=== PATIENT | male | born 1945 | race Caucasian/White ===

== ENCOUNTER 2020-11-24 09:22 | Outpatient (CLI) | payer OTHER, SELFPAY ==
--- NOTE | 2020-11-24 | ECG_ITS ---
Measurements Intervals [place] Rate: 85 P: VT: 0 QRS: 4 QRSD: 89 T: 71 QT: 361 QTc: 430 Interpretive Statements ATRIAL FIBRILLATION LOW QRS VOLTAGE- DIFFUSE LEADS BORDERLINE R WAVE PROGRESSION, ANTERIOR LEADS BORDERLINE ST-T WAVE ABNORMALITY- INF/HIGH LAT LEADS BASELINE ARTIFACT- III, AVF, V1-V6 ABNORMAL ECG Electronically Signed On 11-24-2020 10:13:43 CASE WORK AIDE by Heath Sandoval D.O.
== END 2020-11-24 09:23 | disposition home or self-care (01) ==
PROVIDERS: PCP Emergency Medicine; Visit Provider Internal Medicine Cardiovascular Disease
DX: I48.21 Permanent atrial fibrillation (principal); Z98.61 Coronary angioplasty status; E78.2 Mixed hyperlipidemia; G47.33 Obstructive sleep apnea (adult) (pediatric); I51.9 Heart disease, unspecified; I48.19 Other persistent atrial fibrillation; R94.31 Abnormal electrocardiogram [ECG] [EKG]
CPT/HCPCS: 93005

== ENCOUNTER 2023-10-20 06:35 | Outpatient (CLI) | payer MEDICARE, OTHER, SELFPAY ==
--- NOTE | ~2023-10-20 | CT_ITS ---
EXAMINATION: CT abdomen pelvis wo/w con DATE: 10/20/2023 07:29 INDICATION: Gross hematuria TECHNIQUE: Computed tomography (CT) of the abdomen and pelvis was performed without and subsequently with 130 CC Omnipaque 350 intravenous contrast. Automated exposure control and iterative reconstructi on technique were employed. Exam dose: 2632.98 mGy-cm total exam DLP. COMPARISON: 10/20/2023 KUB FINDINGS: Calcified pulmonary granulomas. There is mild discoid atelectasis or scarring at the lung b ases. No basilar consolidation. Coronary artery calcification. No pericardial or pleural effusion. Several probable hepatic cysts, measuring up to approximately 1.4 cm maximal dimension. The gallbladd er, bile ducts, pancreatic duct, pancreas and spleen as well as adrenal glands are unremarkable. There are at least several bilateral renal wedge shaped areas of cortical diminished contrast enhance ment, suggesting bilateral renal infarcts or acute pyelonephritis. There are 3 nonobstructing right renal calculi, the smallest punctate, the largest approximately 4.4 mm. 2.8 mm lower pole nonobstructing left renal calculus. There are 2 distal right ureteral calculi, measuring approximately 5 x 6.5 mm and 5.3 x 7.2 mm. There is very prominent prostatomegaly and multiple prostate calcifications, with diffuse thickening of the urinary bladder wall consistent with bladder outlet obstruction. Small sliding hiatal hernia. Normal appendix. There is a lengthy redundant sigmoid colon. There are multiple diverticula of the sigmoid and to a le sser extent descending and transverse colon; no CT evidence of diverticulitis. No bowel obstruction, bowel wall thickening, pneumatosis or intraperitoneal free air is detected. Small fat-containing left inguinal hernia. Small fat-containing umbilical hernia. Moderate degenerative changes of the thoracic and lumbar spine. There is grade 1 anterolisthesis at L 5-S1 due to degenerative change at the apophyseal joints. Bilateral hip osteoarthritis. No suspicious osteolytic or osteoblastic lesions are noted. IMPRESSION: Multiple bilateral wedge-shaped areas of diminished contrast enhancement of renal cortex, suggesting bilateral renal infarcts or acute pyelonephritis Bilateral nephrolithiasis 2 large distal right ureteral calculi without hydroureteronephrosis Several hepatic cysts Small sliding hiatal hernia Normal appendix Diverticulosis of the colon Prominent prostatomegaly, with bladder wall thickening consistent with bladder outlet obstruction Reviewed, dictated and finalized at Location A. Reviewed, dictated and finalized at location B. L CONCIERGE IMPRESSION: Multiple bilateral wedge-shaped areas of diminished contrast enhanc ement of renal cortex, suggesting bilateral renal infarcts or acute pyelonephri tis Bilateral nephrolithiasis 2 large distal right ureteral calculi without hydroureteronephrosis Several hepatic cysts Small sliding hiatal hernia Normal appendix Diverticulosis of the colon Prominent prostatomegaly, with bladder wall thickening consistent with bladder outlet obstruction
--- NOTE | ~2023-10-20 | XR_ITS ---
EXAMINATION: XR abdomen/kub 1V DATE: 10/20/2023 07:09 INDICATION: Gross hematuria. TECHNIQUE: A supine view of the abdomen on 2 radiographs was obtained. COMPARISON: CT abdomen and pelvis 10/20/23 FINDINGS: There are no dilated loops of bowel. The kidneys are obscured by bowel. There are two 6 mm stones in distal right ureter. IMPRESSION: 1. Distal right ureteral stones. Reviewed, dictated and finalized at location E. LOCKER
[2023-10-20 07:15] LABS: Estimated Glomerular Filt Rate > 60
== END 2023-10-20 06:36 | disposition home or self-care (01) ==
PROVIDERS: Visit Provider Urology
DX: R31.0 Gross hematuria (principal); N20.1 Calculus of ureter; N20.0 Calculus of kidney; K44.9 Diaphragmatic hernia without obstruction or gangrene; K57.30 Diverticulosis of large intestine without perforation or abscess without bleeding
CPT/HCPCS: 74018; 74178; Q9967

== ENCOUNTER 2023-11-02 08:14 | Outpatient (CLI) | payer MEDICARE, SELFPAY ==
--- NOTE | 2023-11-02 08:23 | ECG_ITS ---
Measurements Intervals [place] Rate: 59 P: CA: 0 QRS: -13 QRSD: 98 T: 72 QT: 430 QTc: 428 Interpretive Statements ATRIAL FIBRILLATION WITH SLOW VENTRICULAR RESPONSE LOW QRS VOLTAGE [QRS DEFLECTION < 0.5/1.0 mV IN LIMB/CHEST LEADS] COMPARED TO ECG 11/24/2020 09:47:36 NO SIGNIFICANT CHANGES Electronically Signed On 11-02-2023 13:58:38 CITY DRIVER by Amanda Montana M.D.
[2023-11-02 08:59] LABS: Anion Gap 6 mmol/L (8-16); Blood Urea Nitrogen 10 mg/dL (9-20); Carbon Dioxide 30 mmol/L (22-30); Chloride 105 mmol/L (98-107); Estimated Glomerular Filt Rate > 60; Glucose 131 mg/dL (65-110); Potassium 3.7 mmol/L (3.4-5.0); Sodium 141 mmol/L (137-145)
== END 2023-11-02 08:15 | disposition home or self-care (01) ==
LOC: ANHSURGERY 08:19
PROVIDERS: Anesthesiology; Visit Provider Urology
DX: N20.1 Calculus of ureter (principal); I10 Essential (primary) hypertension; E11.9 Type 2 diabetes mellitus without complications; Z01.818 Encounter for other preprocedural examination
CPT/HCPCS: 36415; 80048; 87086; 93005

== ENCOUNTER 2023-11-07 01:11 | Day surgery (SDC) | payer MEDICARE, OTHER, SELFPAY ==
--- NOTE | 2023-10-30 13:13 | PC.NURSE ---
Report to the Outpatient Waiting Room, entrance under the green pavilion located off [facility], at time _1100 on date __11/07/23 . Planned Procedure Time: __1:00 PM . Time changes happen often and if your time is changed the preop area will call you the afternoon before. - You and your visitor will be asked to self-screen and do not enter if you have any COVID symptoms. - A mask is optional within the hospital at this time. Patients may have clear liquids (water, carbonated beverages, clear teas, apple juice) until 3 hours prior to surgery (10 AM)with a maximum of 20 ounces. - No food from midnight until time of surgery - Infants may have breast milk until 4 hours before surgery, infant formula 6 hours prior to surgery. - Children will be allowed to drink immediately following surgery. If applicable, please bring a bottle or sippy cup to assist with drinking. Juice, water, soda, and popsicles are readily available. For infants on formula, please bring formula the day of surgery. Pacifiers are allowed. Take the following medications with a SIP of water the morning of surgery: __NONE DO NOT STOP ANY OF YOUR OTHER PRESCRIPTION MEDICATIONS PRIOR TO SURGERY ?EXCEPT THE FOLLOWING Medications to discontinue per physician __WIFE STATES LAST DOSE OF ASPIRIN TODAY 10/30/23 AND HOLD ELIQUIS 2 DAYS PRE OP PER DR CANTOR.LAST DOSE 11/04/23 Please no make-up, nail estonian, hairspray, perfume, deodorant, or body powder the day of surgery. No jewelry (including any body piercings) or valuables the day of surgery, leave them at home. Please take a shower or bath the night before, or the morning of, surgery with an antibacterial soap. Wear comfortable, loose fitting clothing. Children are encouraged to wear pajamas. - Jewelry must be removed prior to entering the operating room. Rings and piercings that are not removed may be cut off. - The hospital will not accept responsibility for valuables. - Please leave all valuables, including medications, at home the day of surgery. If you are going home after surgery, a licensed team driver must drive you home. - NO public transportation without another adult if you receive anesthesia. - We recommend that an adult stay with you for 24 hours following discharge. - We also recommend that you do not drive, make important decision, drink alcoholic beverages, or take any drugs that were not prescribed by your health care provider for at least 24 hours after your discharge time. For Pediatric surgeries, we recommend two adults accompany the child home. Follow any additional instructions given to you from your surgeon. If you or anyone in your household have experienced Covid symptoms in the past week, please notify your surgeon or the nurse liaison at the phone number below for possible testing. Telephone instructions given to __PT'S CHRISTOPHER and asked if any additional questions and then verbalized understanding. Patient advised to call surgeon office or pre surgery nurse liaison [phone] if any additional questions.
[2023-10-30 13:24] VITALS: BMI 36.9
[2023-11-07] VITALS (16 sets, daily range): BP systolic 112–134; BP diastolic 60–91; PULSE 60–92; RESP 12–20; TEMP 36.2–36.7; O2SAT 95–100; BMI 35.7
--- NOTE | ~2023-11-07 | XR_ITS ---
EXAMINATION: XR retrograde pyelo w/stent RT DATE: 11/07/2023 14:20 INDICATION: Right ureteral stone with gross hematuria TECHNIQUE: 3 fluoroscopic images of the abdomen and pelvis were obtained during procedure performed shelley Fung. Radiologist was not present for the imaging or procedure. The amount of fluoroscopy t kelly used during this procedure was 1.0 minutes. COMPARISON: CT dated 10/20/2023 FINDINGS: Images demonstrate a catheter advanced into the right renal pelvis with contrast injection demonstrat ing minimal right hydronephrosis. Final images demonstrate a right internal ureteral stent with loops formed in the region of the right renal pelvis and in the bladder. The previously seen distal right ureteral stone is no longer visualized and has likely been extracted. IMPRESSION: 1. Right internal ureteral stent in expected position. 2. Previously seen distal right ureteral stone no longer visualized and has likely been extracted. Co rrelate with procedure note. Reviewed, dictated and finalized at location A. PARKER IMPRESSION: 1. Right internal ureteral stent in expected position. 2. Previously seen distal right ureteral stone no longer visualized and has lik hayden been extracted. Correlate with procedure note.
--- NOTE | 2023-11-07 07:18 | WPDHPUPDATE1 ---
History and Physical Update Update Date/Time: 11/07/23 07:18 History and Physical has been reviewed, including an updated exam of the patient. There are NO changes in the patient's condition. Risks, benefits, and alternatives have been discussed and questions answered. Patient agrees to proceed with procedure.
[2023-11-07 11:00] LABS: Glucose Point of Care 102 mg/dl (65-105)
[2023-11-07] MEDS: LACTATED RINGERS 1,000 ML 30 ML IV CONT ×2 (11:00→15:00)
--- NOTE | 2023-11-07 11:38 | WPDANESEPPF ---
Anes - Initial Pre Proc Eval Procedure: Operation Date: 11/07/23 12:30 Proposed Procedures p Cystoscopy, Right Retrograde Pyelogram, Right Ureteroscopy, Right Stone Extraction, Holmium Laser with Right Stent Placement - Rick Fung MD Date/Time: 11/07/23 11:38 Surgeon: Rick Fung MD Pre Op Diagnosis: right ureteral stone Patient Data Age: 78 Gender: M Height: 1.73 m Weight: 106.6 kg Last Vital Signs Temp 36.2 C L 11/07/23 11:00 Pulse 77 11/07/23 11:00 Resp 14 11/07/23 11:00 BP 133/91 H 11/07/23 11:00 Pulse Ox 99 11/07/23 11:00 O2 Del Method Room Air 11/07/23 11:00 Allergies Allergy/AdvReac Type Severity Reaction Status Date / Time No Known Allergies Allergy Verified 11/07/23 11:04 Home Medications Medication Instructions Recorded Confirmed Type apixaban 5 mg tablet (Eliquis) 5 mg PO BID 09/10/19 11/07/23 History aspirin 81 mg tablet 81 mg PO DAILY 09/10/19 11/07/23 History atorvastatin 80 mg tablet 80 mg PO DAILY 09/10/19 10/30/23 History losartan 25 mg tablet 50 mg PO DAILY 09/10/19 10/30/23 History alogliptin 6.25 mg tablet 6.25 mg PO DAILY 10/30/23 10/30/23 History Laboratory Tests 11/07/23 10:57 POC Capillary Glucose 102 mg/dl (65-105) Patient hx anesthesia problems: none Family hx anesthesia problems: none Results Review: All pre-operative results and documents have been reviewed as part of the pre-operative evaluation. [facility] Past Medical History Medical History Abnormal PSA Afib Bilateral knee pain CAD (coronary artery disease) Degenerative joint disease of knee Hearing loss HLD (hyperlipidemia) Family History Family History Father Family history of malignant neoplasm, Onset Age: 78 Mother Family history of lung disease, Onset Age: 80 Social History Social History Smoking status: Never smoker Alcohol intake: never Living arrangements: with family Spiritual care concerns: No Anes - Eval Final PreProcedure Day of Procedure 11/07/23 11:38 Patient weight: obese Heart: irregular rhythm Lungs: clear to auscultation Airway: Mallampati scale class II and special considerations poor dentition (loose teeth) Last oral intake: >/= 8 hours ASA classification: III Emergent: no Anesthetic plan: proceed Anesthesia type and monitoring: general LMA and standard monitoring Results Review: All pre-operative results and documents have been reviewed as part of the pre-operative evaluation. Informed Consent: The patient's anesthetic plan and its attendant risks including tooth loss and benefits were discussed with the patient/family/POA. Questions were solicited and answers provided to the satisfaction of the patient/family/POA.
[2023-11-07] MEDS: ceFAZolin 2 GM/D5W 50 ML 2 GM/50 ML BAG IVPB (12:40)
[2023-11-07] MEDS: LIDOCAINE HCL 2% GEL UROJET 10 ML PKG MUCOUS MEM (12:57)
--- NOTE | 2023-11-07 14:17 | W.PM.PROC2 ---
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 Once anesthesia was obtained was placed in dorsal lithotomy position and prepped and draped usual sterile fashion. Twenty-two Honduran scope would not pass into the meatus. We dilated the urethra up to 24 Honduran. Twenty-two Honduran scope was then passed. Patient has somewhat of elevated bladder neck with prostate protruding there. Is very vascular nature. It was very difficult to inspect the bladder as it was difficult to manipulate the scope. I was finally able to visualize a right ureteral orifice and cannulated with a Sensor wire. I dilated with an 8/10 dilator. A rigid ureteral scope could not be torqued enough to enter into the orifice. A ureteral access sheath was then placed. A flexible ureteral scope was inserted distal ureter. He has 2 large stones present. Using a holmium laser we were able to finally laser the stone to the point we could extract the stone fragments. Pyelogram was performed to confirm placement of the stent. 4.8 [place] contour stent was then placed with the proximal end coiled in the renal pelvis and the distal in the bladder. He did have some bleeding from the prostatic fossa. Eighteen [place]uran 3 was then placed with 10 cc in the balloon. Patient is taken recovery stable condition with CBI. His urine clears he will be discharged home with Garcia catheter trauma otherwise be admitted for CBI. Will plan on removing the catheter in 2-3 days time and the stent in 1 week. This completes dictation on this patient. Please send a copy this op note to my office. Estimated Blood Loss 10 Drains Yes Packing No Pathology Yes Complications No immediate complications Condition Stable Disposition PACU
[2023-11-07 14:49] LABS: Glucose Point of Care 113 mg/dl (65-105)
--- NOTE | 2023-11-07 17:47 | ADMGEN ---
This patient, Christopher Novak, was admitted to Medical Room 347-. Patient/family oriented to hospital policies and general routines including ID bracelet, bed and alarms, visiting hours, pain management, procedures, bathroom and other care routines, personal items, smoking policy, room service/diet, and visiting hours. Information on how to activate the Rapid Response Team has been discussed. Patient/Family are encouraged to report perceived risks to care and to ask questions if they do not understand what they are told or what they should do.
[2023-11-07] MEDS: DOCUSATE SODIUM 100 MG CAPSULE PO (18:03)
[2023-11-07] MEDS: ONDANSETRON INJ 4 MG/2 ML VIAL IV PUSH (18:04)
[2023-11-07] MEDS: DEXTROSE 5%/LACTATED RINGERS 1,000 ML 125 ML IV CONT (18:04)
[2023-11-07] MEDS: HYDROcodone/acetaminophen (*CRX) 5-325 MG TABLET 1 TAB PO (18:04)
[2023-11-07] MEDS: ceFAZolin 1 GM/NS 50 ML 1 GM/50 ML BAG IVPB (21:03)
[2023-11-08 02:30] VITALS: BP 122/68; PULSE 74; RESP 20; TEMP 36.3; O2SAT 98
[2023-11-08] MEDS: ceFAZolin 1 GM/NS 50 ML 1 GM/50 ML BAG IVPB (04:38)
[2023-11-08 06:12] LABS: Hematocrit 39.2 % (42.0-52.0); Hemoglobin 13.5 g/dL (14.0-18.0)
[2023-11-08 06:30] VITALS: BP 110/55; PULSE 84; RESP 20; TEMP 36.6; O2SAT 98
--- NOTE | 2023-11-08 07:36 | WPDANESPN ---
Anes - Prog Note Post-Op Date/Time: 11/08/23 07:36 Cardiovascular status: normal Respiratory status: normal Airway patency: baseline Mental status: baseline Post-Op hydration status: normal Vital Signs: Last Vital Signs Temp 36.3 C L 11/08/23 02:30 Pulse 74 11/08/23 02:30 Resp 20 11/08/23 02:30 BP 122/68 11/08/23 02:30 Pulse Ox 98 11/08/23 02:30 O2 Del Method Room Air 11/07/23 20:00 O2 Flow Rate 8 11/07/23 14:50 Pain Score (VAS): 0 I/O: Intake & Output 11/07/23 11/07/23 11/08/23 15:59 23:59 07:59 Intake Total 3250 3150 Output Total 5150 1850 4700 Balance -1900 1300 -4700 Laboratory Tests 11/08/23 06:01 11/07/23 11/07/23 11/08/23 10:57 14:46 06:01 Hgb 13.5 L Hct 39.2 L POC Capillary Glucose 102 113 H Post-procedural complaints: none Patient Feedback: Patient satisfied with anesthetic care.
--- NOTE | 2023-11-08 08:19 | WPDUROPN2 ---
Progress Note: A&P Assessment and Plan (1) Right ureteral calculus: Code(s): N20.1 - Calculus of ureter Status: Acute Assessment and Plan: Doing well overall. Will wean the CBI. If remains clear to be discharged home with Garcia catheter and have it removed on Monday. Plan on stent removal in 1-2 weeks time. Subjective Subjective Date/Time Seen: 11/08/23 08:19 Post Op day: 1 (Right ureteroscopy with holmium laser and stone extraction with stent placement.) Principal diagnosis: Right ureteral calculi, hematuria Interval history: Was doing well overall. He was a difficult ureteroscopy with a significantly enlarged prostate which was vascular in nature. Difficult to find the orifices due to the prostate size. Nonetheless he is doing well today. His urine is still slightly pink and will continue to run the CBI this morning. Will wean it off by lunch time. It stays clear he will be discharged home with a Garcia catheter and have it removed on Monday. Stent removal in 1-2 weeks time. Will also need to address his abnormal MRI of the prostate as he will need a prostate biopsy. Exam Const: General: cooperative and comfortable Resp: Effort & Inspection: normal respiratory effort Cardio: Rate: regular rate Rhythm: regular rhythm Urinary Catheter: Urinary Catheter: patent and draining and urine pink Objective Data Vital Signs Vital Signs: Vital Signs - 24 hr 11/07/23 11:00 11/07/23 14:22 11/07/23 14:35 Temperature 36.2 C L 36.2 C L Pulse Rate 77 89 89 Respiratory Rate 14 16 17 Blood Pressure 133/91 H 132/79 134/90 Pulse Oximetry 99 100 100 Oxygen Delivery Room Air Simple Face Mask Simple Face Mask Oxygen Flow Rate 8 8 11/07/23 14:50 11/07/23 15:05 11/07/23 15:20 Temperature Pulse Rate 92 85 78 Respiratory Rate 18 18 17 Blood Pressure 118/72 131/87 125/84 Pulse Oximetry 100 100 96 Oxygen Delivery Simple Face Mask Room Air Room Air Oxygen Flow Rate 8 11/07/23 15:35 11/07/23 15:50 11/07/23 16:05 Temperature Pulse Rate 82 73 76 Respiratory Rate 16 14 12 Blood Pressure 112/83 129/70 127/84 Pulse Oximetry 97 97 95 Oxygen Delivery Room Air Room Air Room Air Oxygen Flow Rate 11/07/23 16:20 11/07/23 16:35 11/07/23 17:05 Temperature 36.6 C 36.6 C Pulse Rate 78 77 60 Respiratory Rate 12 12 18 Blood Pressure 119/84 124/68 134/86 Pulse Oximetry 99 98 98 Oxygen Delivery Room Air Room Air Oxygen Flow Rate 11/07/23 17:18 11/07/23 17:53 11/07/23 18:22 Temperature 36.6 C 36.7 C Pulse Rate 74 76 Respiratory Rate 18 18 Blood Pressure 134/87 122/71 Pulse Oximetry 97 96 Oxygen Delivery Room Air Oxygen Flow Rate 11/07/23 18:45 11/07/23 20:00 11/07/23 22:30 Temperature 36.3 C L 36.6 C Pulse Rate 91 88 Respiratory Rate 18 20 Blood Pressure 123/60 Pulse Oximetry 98 98 Oxygen Delivery Room Air Oxygen Flow Rate 11/08/23 02:30 11/08/23 06:30 Temperature 36.3 C L 36.6 C Pulse Rate 74 84 Respiratory Rate 20 20 Blood Pressure 122/68 110/55 L Pulse Oximetry 98 98 Oxygen Delivery Oxygen Flow Rate Intake/Output Intake/Output: Intake & Output 11/05/23 11/06/23 11/07/23 11/08/23 23:59 23:59 23:59 23:59 Intake Total 6400 Output Total 7000 4700 Balance -600 -4700 Meds/Results Medications: Active Medications Generic Name Dose Route Start Last Admin Trade Name Freq PRN Reason Stop Dose Admin Hydrocodone Bitart/Acetaminophen 1 tab 11/07/23 16:45 11/07/23 18:04 Hydrocodone/Acetaminophen (*Crx) 5-325 Mg Tablet PO 1 tab Q4H PRN Administration Pain Rated 1-6 Cephalexin HCl 500 mg 11/08/23 09:00 Cephalexin 500 Mg Capsule PO QID JAMES Docusate Sodium 100 mg 11/07/23 17:00 11/07/23 18:03 Docusate Sodium 100 Mg Capsule PO 100 mg BID JAMES Administration Hyoscyamine 0.125 mg 11/07/23 16:45 Hyoscyamine Sulfate 0.125 Mg Tablet SUBLINGUAL Q6H PRN Bladder Spasm Losartan
[2023-11-08 08:40] LABS: Glucose Point of Care 112 mg/dl (65-105)
[2023-11-08 09:12] VITALS: BP 104/73; PULSE 72; RESP 16; TEMP 36.9; O2SAT 97
[2023-11-08] MEDS: LOSARTAN POTASSIUM 25 MG TABLET 50 MG PO (09:29)
[2023-11-08] MEDS: CEPHALEXIN 500 MG CAPSULE PO ×2 (09:30→12:00)
[2023-11-08 11:37] LABS: Glucose Point of Care 157 mg/dl (65-105)
--- NOTE | 2023-11-08 13:48 | PM.DS ---
DS: Admitting Diagnosis Discharge Date 11/08/2023 Admitting Diagnosis Right ureteral stone DS: Discharge Diagnosis Discharge Diagnosis (1) Right ureteral calculus: Code(s): N20.1 - Calculus of ureter Status: Acute Assessment and Plan: Underwent urethral dilation, cystoscopy, right retrograde pyelogram, right ureteroscopy with holmium laser, stone extraction, and right ureteral stent placement on 11/07/23. He tolerated the procedure well. Had postoperative bleeding from prostatic fossa therefore 3 way catheter was placed and he was started on CBI. CBI was able to be weaned and his urine remained clear off CBI and without clots. DS: Summary Hospital Course Hospital Course: Date of admission: 11/07/23 Date of discharge: 11/08/23 Christopher was noted to have a right ureteral stone and presented to this facility on 11/07/23 for surgery as above. He tolerated the procedure very well. Due to bleeding from his prostatic fossa, a 3 way catheter was placed and he was started on CBI. Decision was made to have him be monitored overnight and CBI was weaned. He tolerated this well and CBI was discontinued on postoperative day 1. His urine remained clear and free of clots. Aspirin and Eliquis were placed on hold and will plan to resume after follow up in 2-3 days if urine is remaining clear. He complained of mild right ureteral stent discomfort but this improved. Overall his pain was well controlled and he was feeling improved. He will be discharged with his Higgins catheter in place and will follow-up in the office with me on 11/10/2023 for catheter removal. He will then follow-up in the office with Dr. Fung on 11/22/2023 for stent removal. Status at Discharge Functional status at discharge: independent ambulation Time Spent with Patient Time attestation: Total time spent providing and/or coordinating discharge services: 30 minutes Exam Narrative: General: Awake, alert, comfortable, no acute distress HEENT: Normocephalic, atraumatic, sclerae anicteric Respiratory: Normal respiratory effort, no accessory muscle use Abdomen: Nondistended, soft, nontender : Higgins catheter draining clear-light pink urine, free of clots Skin: Normal coloration, warm and dry Neurologic: No focal neuro deficits noted Psychiatric: Appropriate mood and affect, judgment and insight intact DS: Data Data Completed and Pending Pending studies at discharge: Pending at discharge 11/07/23 12:49 Surgical [PTH] Routine Labs on day of discharge: Labs from last 24 hours 11/08/23 11/08/23 11/08/23 11:32 08:35 06:01 Hgb 13.5 L Hct 39.2 L POC Capillary Glucose 157 H 112 H 11/07/23 14:46 Hgb Hct POC Capillary Glucose 113 H Discharge Plan Discharge Patient Disposition: Home, Self-Care Discharge Instructions: Continue higgins catheter. Will schedule appt for 11/10/23 for higgins removal. Follow up in 2 weeks for stent removal. Call or seek medical care if any issues with catheter drainage. Stand Alone Forms: General Discharge Instructions Follow-up/Referrals: Rick Fung MD [Physician] - 11/22/23 9:00 am Discharge Medications: Continued atorvastatin 80 mg tablet 80 mg PO DAILY losartan 25 mg tablet 50 mg PO DAILY alogliptin 6.25 mg Tablet 6.25 mg PO DAILY Held Eliquis 5 mg tablet 5 mg PO BID aspirin 81 mg tablet 81 mg PO DAILY
[2023-11-08 14:57] VITALS: BP 116/71; PULSE 92; RESP 12; TEMP 37; O2SAT 98
[2023-11-08] MEDS: HYDROcodone/acetaminophen (*CRX) 5-325 MG TABLET 1 TAB PO (15:04)
== END 2023-11-08 15:39 | disposition home or self-care (01) ==
LOC: ANHSURGERY 14:21 → ANH3MED 16:49
PROVIDERS: Visit Provider Urology
PROC: (CPT 52352; principal; 2023-11-07 12:30)
DX: N20.1 Calculus of ureter (principal); N40.0 Benign prostatic hyperplasia without lower urinary tract symptoms; I48.91 Unspecified atrial fibrillation; I25.10 Atherosclerotic heart disease of native coronary artery without angina pectoris; E78.5 Hyperlipidemia, unspecified; E66.9 Obesity, unspecified; Z68.35 Body mass index [BMI] 35.0-35.9, adult; Z85.51 Personal history of malignant neoplasm of bladder; Z79.01 Long term (current) use of anticoagulants; Z79.82 Long term (current) use of aspirin; Z79.84 Long term (current) use of oral hypoglycemic drugs
CPT/HCPCS: 52356; 36415; 74420; 80048; 82365; 82948; 85014; 85018; 87086; 88300; 93005; A9270; C1758; C1769; C1894; C2617; J0690; J1100; J2371; J2405; J3010; J7120; J7121; Q9966

== ENCOUNTER 2023-12-04 10:19 | Outpatient (CLI) | payer MEDICARE, OTHER, SELFPAY | END 2023-12-04 10:20 | disposition home or self-care (01) | LOC: ANHSURGERY 10:24 | PROVIDERS: Visit Provider Urology | DX: R97.20 Elevated prostate specific antigen [PSA] (principal); Z01.818 Encounter for other preprocedural examination | CPT/HCPCS: 87086 ==

== ENCOUNTER 2023-12-12 01:38 | Day surgery (SDC) | payer MEDICARE, SELFPAY ==
--- NOTE | 2023-11-29 09:40 | PC.NURSE ---
Report to the Outpatient Waiting Room, entrance under the green pavilion located off [facility], at time ___7:15AM____ on date __12/12/23 . Planned Procedure Time: __9:15AM . Time changes happen often and if your time is changed the preop area will call you the afternoon before. - You and your visitor will be asked to self-screen and do not enter if you have any COVID symptoms. - A mask is optional within the hospital at this time. Patients may have clear liquids (water, carbonated beverages, clear teas, apple juice) until 3 hours prior to surgery with a maximum of 20 ounces. - No food from midnight until time of surgery. Take the following medications with a SIP of water the morning of surgery: NONE DO NOT STOP ANY OF YOUR OTHER PRESCRIPTION MEDICATIONS PRIOR TO SURGERY ?EXCEPT THE FOLLOWING Medications to discontinue per physician ___HOLD ELIQUIS 2 DAYS PRE-OP PER DR CANTOR- LAST DOSE 12/09/23 AND HOLD ASPIRIN 7 DAYS PRE-OP PER DR CANTOR- L AST DOSE 12/04/23 Please no make-up, nail [place], hairspray, perfume, deodorant, or body powder the day of surgery. No jewelry (including any body piercings) or valuables the day of surgery, leave them at home. Please take a shower or bath the night before, or the morning of, surgery with an antibacterial soap. Wear comfortable, loose fitting clothing. Children are encouraged to wear pajamas. - Jewelry must be removed prior to entering the operating room. Rings and piercings that are not removed may be cut off. - The hospital will not accept responsibility for valuables. - Please leave all valuables, including medications, at home the day of surgery. If you are going home after surgery, a licensed spotter driver must drive you home. - NO public transportation without another adult if you receive anesthesia. - We recommend that an adult stay with you for 24 hours following discharge. - We also recommend that you do not drive, make important decision, drink alcoholic beverages, or take any drugs that were not prescribed by your health care provider for at least 24 hours after your discharge time. Follow any additional instructions given to you from your surgeon. If you or anyone in your household have experienced Covid symptoms in the past week, please notify your surgeon or the nurse liaison at the phone number below for possible testing. Telephone instructions given to ___PATIENT'S -CHRISTOPHER and asked if any additional questions and then verbalized understanding. Patient advised to call surgeon office or pre surgery nurse liaison [phone] if any additional questions.
[2023-11-29 09:43] VITALS: BMI 35.7
--- NOTE | 2023-12-11 12:59 | P.PNAN_ITS ---
Anes - Initial Pre Proc Eval Procedure: Operation Date: 12/12/23 09:15 Proposed Procedures p Trans Rectal Ultrasound Fusion Guided Prostate Biopsy - Rick Fung MD Date/Time: 12/11/23 12:59 Surgeon: Rick Fung MD Pre Op Diagnosis: elevated PSA Patient Data Age: 78 Gender: M Height: 1.73 m Weight: 106.6 kg Allergies Allergy/AdvReac Type Severity Reaction Status Date / Time No Known Allergies Allergy Verified 11/29/23 09:12 Home Medications Medication Instructions Recorded Confirmed Type apixaban 5 mg tablet (Eliquis) 5 mg PO BID 09/10/19 11/29/23 History aspirin 81 mg tablet 81 mg PO DAILY 09/10/19 11/29/23 History atorvastatin 80 mg tablet 80 mg PO DAILY 09/10/19 11/29/23 History losartan 25 mg tablet 50 mg PO QAM 09/10/19 11/29/23 History alogliptin 6.25 mg tablet 6.25 mg PO QAM 10/30/23 11/29/23 History Patient hx anesthesia problems: none Family hx anesthesia problems: none Results Review: All pre-operative results and documents have been reviewed as part of the pre- operative evaluation. [facility] Past Medical History Medical History (Updated 11/08/23 @ 08:21 by Rick Fung MD) Abnormal PSA Afib Bilateral knee pain CAD (coronary artery disease) Degenerative joint disease of knee Hearing loss HLD (hyperlipidemia) Surgical History Surgical History (Updated 12/11/23 @ 13:00 by Esdras Newman DO) History of coronary artery stent placement x1, 2014 Family History Family History Father Family history of malignant neoplasm, Onset Age: 78 Mother Family history of lung disease, Onset Age: 80 Social History Social History Smoking status: Never smoker Alcohol intake: never Substance use: never Do You Feel Safe in your Home?: Yes Lack of Transportation: No Lack of Food: Never True Current Housing: I Have Housing Concerned About Future Housing: No Difficulty Paying Gas/Electric Bills: No Difficulty Paying for Meds: No Currently Unemployed: No Education: Decline to Answer Difficulty w/ Childcare or Family Care: No Living arrangements: with family Additional living arrangements comments: CHRISTOPHER- Spiritual care concerns: No Anes - Eval Final PreProcedure Day of Procedure 12/11/23 12:59 Patient weight: obese Heart: regular rate and rhythm Lungs: clear to auscultation Airway: Mallampati scale class II and special considerations poor dentition (loose bottom tooth - patient aware this may come out during anesthesia) Neurological: alert and oriented Last oral intake: >/= 8 hours ASA classification: III Emergent: no Anesthetic plan: proceed Anesthesia type and monitoring: general LMA and standard monitoring Results Review: All pre-operative results and documents have been reviewed as part of the pre- operative evaluation. Informed Consent: The patient's anesthetic plan and its attendant risks and benefits were discussed with the patient/family/POA. Questions were solicited and answers provided to the satisfaction of the patient/family/POA.
[2023-12-12 08:03] LABS: Glucose Point of Care 115 mg/dl (65-105)
[2023-12-12 08:05] VITALS: BP 117/66; PULSE 68; RESP 14; TEMP 36.8; O2SAT 97
[2023-12-12] MEDS: LACTATED RINGERS 1,000 ML 30 ML IV CONT (08:09)
--- NOTE | 2023-12-12 09:03 | WPDHPUPDATE1 ---
History and Physical Update Update Date/Time: 12/12/23 09:03 History and Physical has been reviewed, including an updated exam of the patient. There are NO changes in the patient's condition. Risks, benefits, and alternatives have been discussed and questions answered. Patient agrees to proceed with procedure. Proceed with Uronav us and prostate biopsy
--- NOTE | 2023-12-12 09:35 | SUR.OPER ---
Tooth intact after induction.
[2023-12-12 09:49] VITALS: BP 127/72; PULSE 63; RESP 14; TEMP 36.3; O2SAT 100
--- NOTE | 2023-12-12 09:51 | P.OP_ITS ---
Procedure Note - Detailed Date of Procedure 12/12/23 Pre-op Diagnosis elevated PSA Post-op Diagnosis Same Procedure Performed Uronav us and prostate biopsy Surgeon Rick Fung MD Anesthesia General Description of Procedure Patient was taken to the operative suite and correctly identified. Once anesthe angus was obtained he was placed in decubitus position. Transrectal ultrasound was then performed. The MRI was fused to the ultrasound machine. Three cores were taken from the region of interest. Twelve standard cores were then taken. Patient tolerated procedure well without any complications and was taken recovery stable condition. He will call for path results in 1 week. This completes dictation. Please send a copy of op note to my office. Estimated Blood Loss 0 Drains No Packing No Pathology Yes Complications No immediate complications Condition Stable Disposition PACU
[2023-12-12 09:59] LABS: Glucose Point of Care 111 mg/dl (65-105)
[2023-12-12 10:01] VITALS: BP 122/66; PULSE 61; RESP 15; O2SAT 100
[2023-12-12 10:15] VITALS: BP 115/76; PULSE 56; RESP 16; O2SAT 99
[2023-12-12 10:18] VITALS: BP 116/60; PULSE 61; RESP 16
--- NOTE | 2023-12-12 10:21 | SUR.OPER ---
Tooth intact after extubation.
[2023-12-12 10:45] VITALS: BP 119/62; PULSE 65; RESP 16
== END 2023-12-12 11:03 | disposition home or self-care (01) ==
PROVIDERS: Visit Provider Urology
PROC: (CPT 55700; principal; 2023-12-12 09:15)
DX: N41.0 Acute prostatitis (principal); N41.1 Chronic prostatitis; I48.91 Unspecified atrial fibrillation; I25.10 Atherosclerotic heart disease of native coronary artery without angina pectoris; E78.5 Hyperlipidemia, unspecified; Z79.01 Long term (current) use of anticoagulants; Z79.82 Long term (current) use of aspirin; Z79.84 Long term (current) use of oral hypoglycemic drugs; Z95.5 Presence of coronary angioplasty implant and graft; E66.9 Obesity, unspecified; Z68.35 Body mass index [BMI] 35.0-35.9, adult
CPT/HCPCS: 76872; 55700; 82948; 87086; G0416; J1100; J2405; J2704; J7120